=== PATIENT | female | born 1950 | race Caucasian/White ===

== ENCOUNTER 2025-01-22 16:45 | Emergency (ER) | payer MEDICARE, OTHER, SELFPAY ==
[2025-01-22 16:54] VITALS: BP 150/92
--- NOTE | 2025-01-22 16:58 | ED.MUSCINJ ---
HPI-Injury
<Jimmy Fuentes PA-C - Last Filed: 01/22/25 16:58>
General
Chief Complaint: Fall
Time Seen by Provider: 01/22/25 19:56
<Omar Franco PA-C - Last Filed: 01/22/25 20:31>
History of Present Illness-Injury
Initial Injury comments:
74-year-old female presents the emergency department for evaluation of nasal and facial pain after a mechanical fall while doing yard work. No LOC. She also reports mild neck discomfort. She is concerned for prior deviated septum repair. Not on
any anticoagulants. CT scans were ordered from triage
ED Provider Triage
<Jimmy Fuentes PA-C - Last Filed: 01/22/25 16:58>
-
Patient seen by provider in Triage?: Seen in Triage
Attestation: A medical screening examination has been initiated by a qualified medical provider. Based on the assessment performed at this time, it has been determined that an emergent medical condition may exist and the patient has been informed
that further medical evaluation and possible additional diagnostic testing may be needed.
HPI: 74-year-old female not anticoagulated presents for evaluation of a fall. She was doing yard work and fell forward landing on her nose. She notes nasal pain and neck pain. No loss of consciousness. She noted mild bleeding from her nose which
has since stopped. CT of head cervical spine and facial bones ordered
GENERAL: Alert , in no apparent distress
EYE: No visual abnormalities.
NECK: Trachea midline
ENT: No visible abnormalities.
LUNGS: No acute respiratory distress
NEUROLOGICAL: Alert and oriented
SKIN: Skin intact. No visible changes.
MUSCULOSKELETAL: Moving extremities normally
PSYCH: Normal and appropriate interaction.
This is a medical evaluation conducted in person to initiate diagnostic evaluation and provide initial therapeutics. Please see further documentation by the treating clinician.
Review of Systems
<Omar Franco PA-C - Last Filed: 01/22/25 20:31>
Review of Systems
Allergies reviewed?: Yes
Phy Exam
<Omar Franco PA-C - Last Filed: 01/22/25 20:31>
Physical Exam
Physical Exam:
GEN: Well appearing, NAD, WDWN
HEENT: Oral mucosa moist, no scleral icterus. No nasal bone deformities, no ecchymosis, normal extraocular motions in all scales, no nasal septal hematoma
Cardiac: Regular rate
Lung: No respiratory distress, no tachypnea
MSK: No gross deformity or injuries
Skin: Good color, no pallor or jaundice, no rashes
Neuro: AO x3, cranial nerves II through XII grossly tact, moves all extremities freely
Psych: Calm, cooperative
Injury Course
<Jimmy Fuentes PA-C - Last Filed: 01/22/25 16:58>
Orders/Labs/Results
Orders:
Orders
01/22/25 16:54
CT Cervical Spine W/o Iv Contr Urgent
Comment:
Reason For Exam: fall
CT Facial Bones W/o Iv Contras Urgent
Comment:
Reason For Exam: fall
CT Head W/o Iv Contrast Urgent
Comment:
Reason For Exam: fall
<Omar Franco PA-C - Last Filed: 01/22/25 20:31>
Orders/Labs/Results
Orders:
Orders
01/22/25 16:54
CT Cervical Spine W/o Iv Contr Urgent
Comment:
Reason For Exam: fall
CT Facial Bones W/o Iv Contras Urgent
Comment:
Reason For Exam: fall
CT Head W/o Iv Contrast Urgent
Comment:
Reason For Exam: fall
<Omar Franco PA-C - Last Filed: 01/22/25 20:31>
MDM/Problems Addressed
MDM/Problems Addressed:
Imaging grossly unremarkable, pt reassured
<Omar Franco PA-C - Last Filed: 01/22/25 20:31>
*Critical Care Note
Total Time (30-74mins, 75-104mins- exclusive of procedures): Not Applicable
ED Attending Note
<Jimmy Fuentes PA-C - Last Filed: 01/22/25 16:58>
-
Portions of this chart may have been created with voice recognition software.� Occasional wrong word or��sound alike� substitutions may have occurred due to the inherent limitations of voice recognition software.
Discharge Plan
Departure
Patient Disposition: Home (Routine Discharge)
Date of Disposition: 01/22/25
Time of Disposition: 20:12
Patient with high blood pressure during this ER visit?: No
Discharge Problem:
Contusion of nose
Instructions: Head Injury in Adults (DC)
Interventions
Interventions:
*Risk Screen - Suicide Last Done: 01/22/25 16:54
*General Assessment Last Done: 01/22/25 16:54
*Neglect/Abuse Screening Last Done: 01/22/25 16:54
*ED COVID-19 Vaccine History Last Done: 01/22/25 16:54
Discharge Date and Time
Print Language: MAURITANIAN
== END 2025-01-22 20:43 | disposition home or self-care (01) ==
LOC: EMR 16:45
PROVIDERS: EMERGENCY PHYSICIAN Emergency Medicine; FAMILY PHYSICIAN Internal Medicine
DX: S00.33XA Contusion of nose, initial encounter (principal); W19.XXXA Unspecified fall, initial encounter
CPT/HCPCS: 99284; 70450; 70486; 72125